=== PATIENT | female | born 1970 | race American Indian/Alaskan Native ===

== ENCOUNTER 2020-08-25 22:31 | Emergency (ER) | payer MEDICARE, MEDICAID ==
[2020-08-25 22:52] VITALS: BP 146/74
[2020-08-25] MEDS ORDERED: oxyCODONE /ACETAMINOPHEN 5-325MG TAB PO ONE (23:05)
[2020-08-25] MEDS ORDERED: ONDANSETRON 4 MG ODT TAB PO ONE (23:05)
[2020-08-25] MEDS ORDERED: predniSONE 20 MG TAB PO ONE (23:05)
[2020-08-25] MEDS ORDERED: IBUPROFEN 600 MG TAB PO ONE (23:05)
[2020-08-25] MEDS ORDERED: AMOXICILLIN/K CLAV 875/125MG TAB PO ONE (23:05)
--- NOTE | 2020-08-25 23:10 | Emergency Department Report ---
ED General Adult HPI - General Chief complaint: Allergic Reaction Stated complaint: FACIAL SWELLING Source: patient Mode of arrival: Ambulatory Limitations: No Limitations - History of Present Illness Initial comments: Patient is a 50-year-old -[place] female with a history of asthma and COPD as well as fio-ozomboq-upxydjway diabetes who presents to the ED with complaint of acute onset persistent painful swollen left maxillary and mandibular gingiva and premolar molar toothache for the last 2 days, worse in the last 12 hours. Patient states that she has not been able to eat anything because of worsening pain and now feels that the pain radiates to her left zygomatic area with pressure. Patient states that she tried to take obcf-xpr-[id number] pain medications with no relief. Patient denies headache, dizziness, syncope, chest pain, shortness of breath, sore throat, nausea and vomiting, fever and chills or change in vision or neck pain. MD Complaint: left upper and lower jaw pain and swelling -: Sudden, days(s) (2) Location: mouth Radiation: non-radiation Severity scale (0 -10): 8 Quality: aching, sharp Consistency: constant Improves with: none Worsens with: eating Associated Symptoms: denies other symptoms. denies: confusion, chest pain, cough, diaphoresis, fever/chills, headaches, loss of appetite, malaise, nausea/vomiting, rash, seizure, shortness of breath, syncope, weakness Treatments Prior to Arrival: none - Related Data Previous Rx's Medication Instructions Recorded Last Taken Type Acetaminophen/Codeine [Tylenol 1 tab PO Q6H PRN #12 tab 08/25/20 Unknown Rx /Codeine # 3 tab] Clindamycin [Clindamycin CAP] 300 mg PO Q8HR #60 capsule 08/25/20 Unknown Rx Ibuprofen [Motrin] 800 mg PO Q8HR PRN #30 tablet 08/25/20 Unknown Rx Allergies Allergy/AdvReac Type Severity Reaction Status Date / Time ciprofloxacin [From Cipro] Allergy Unknown Verified 08/25/20 22:47 nitrofurantoin Allergy Unknown Verified 08/25/20 22:47 [From Macrobid] Sulfa (Sulfonamide Allergy Unknown Verified 08/25/20 22:47 Antibiotics) ED Review of Systems ROS: Stated complaint: FACIAL SWELLING Other details as noted in HPI Constitutional: denies: chills, fever Eyes: denies: eye pain, eye discharge, vision change ENT: dental pain (Left maxillary and mandibular gingival swelling and pain; premolar molar toothache). denies: ear pain, throat pain Respiratory: denies: cough, shortness of breath, wheezing Cardiovascular: denies: chest pain, palpitations Endocrine: no symptoms reported Gastrointestinal: denies: abdominal pain, nausea, diarrhea Genitourinary: denies: urgency, dysuria, discharge Musculoskeletal: denies: back pain, joint swelling, arthralgia Skin: denies: rash, lesions Neurological: denies: headache, weakness, paresthesias Psychiatric: denies: anxiety, depression Hematological/Lymphatic: denies: easy bleeding, easy bruising ED Past Medical Hx - Past Medical History Previous Medical History?: Yes Hx Diabetes: Yes Hx Asthma: Yes Hx COPD: Yes - Surgical History Past Surgical History?: No - Social History Smoking Status: Never Smoker Substance Use Type: None - Medications Home Medications: Home Medications Medication Instructions Recorded Confirmed Last Taken Type Acetaminophen/Codeine [Tylenol 1 tab PO Q6H PRN #12 tab 08/25/20 Unknown Rx /Codeine # 3 tab] Clindamycin [Clindamycin CAP] 300 mg PO Q8HR #60 capsule 08/25/20 Unknown Rx Ibuprofen [Motrin] 800 mg PO Q8HR PRN #30 tablet 08/25/20 Unknown Rx ED Physical Exam - General Limitations: No Limitations General appearance: alert, in no apparent distress - Head Head exam: Present: atraumatic, normocephalic, normal inspection - Eye Eye exam: Present: normal appearance, PERRL, EOMI Pupils: Present: normal accommodation - ENT ENT exam: Present: mucous membranes moist, TM's normal bilaterally, normal external ear exam, other (Swollen, severely tender left maxillary and mandibular gingiva as well as severely tender premolar molar teeth tenderness) - Neck Neck exam: Present: normal inspection, full ROM, lymphadenopathy. Absent: tenderness - Respiratory Respiratory exam: Present: normal lung sounds bilaterally. Absent: respiratory distress, wheezes, chest wall tenderness, accessory muscle use, prolonged expi ratory - Cardiovascular Cardiovascular Exam: Present: regular rate, normal rhythm, normal heart sounds. Absent: systolic murmur, diastolic murmur, rubs, gallop - GI/Abdominal GI/Abdominal exam: Present: soft, normal bowel sounds. Absent: tenderness, guarding, rebound, hyperactive bowel sounds, hypoactive bowel sounds, organomegaly - Extremities Exam Extremities exam: Present: normal inspection, full ROM, normal capillary refill - Back Exam Back exam: Present: normal inspection, full ROM. Absent: tenderness, CVA tenderness (R), CVA tenderness (L), muscle spasm, paraspinal tenderness - Neurological Exam Neurological exam: Present: alert, oriented X3, CN II-XII intact, normal gait, reflexes normal - Psychiatric Psychiatric exam: Present: normal affect, normal mood, anxious - Skin Skin exam: Present: warm, dry, intact, normal color. Absent: rash ED Course Vital Signs 08/25/20 22:46 Temperature 98.8 F Pulse Rate 62 Respiratory 17 Rate Blood Pressure 146/74 O2 Sat by Pulse 99 Oximetry ED Medical Decision Making - Medical Decision Making This is a 50-year-old -[place] female with a history of asthma and COPD as well as xhq-rmifhzz-nbqqlkwve diabetes who presents to the ED with complaint of acute onset persistent painful swollen left maxillary and mandibular gingiva and premolar molar toothache for the last 2 days, worse in the last 12 hours. Patient states that she has not been able to eat anything because of worsening pain and now feels that the pain radiates to her left zygomatic area with pressure. Patient states that she tried to take flfy-qzx-ixwiztq pain medications with no relief. In the ED, patient is alert and oriented x3 and is not in any distress. Patient however appears to be in significant pain. Patient was treated for pain in the ED and on reevaluation, patient's pain is well controlled medication. Patient was therefore discharged home on pain medications and antibiotics and was advised to follow-up with her dentist or primary care physician in 7 to 10 days for reevaluation or return to the ED immediately if symptoms get worse. - Differential Diagnosis Dental abscess; gingivitis; dental caries Critical care attestation.: If time is entered above; I have spent that time in minutes in the direct care of this critically ill patient, excluding procedure time. ED Disposition Clinical Impression: Dental abscess, Acute gingivitis, Dental caries Disposition: TO HOME OR SELFCARE Is pt being admited?: No Does the pt Need Aspirin: No Condition: Stable Instructions: Dental Abscess, Ueay-bz-Ymtv, Trench Mouth Additional Instructions: Take medication with food, drink plenty of fluids and follow-up with your dentist or primary care physician in 7 to 10 days for reevaluation. Return to the ED immediately if symptoms get worse. Prescriptions: Clindamycin [Clindamycin CAP] 300 mg PO Q8HR #60 capsule Ibuprofen [Motrin] 800 mg PO Q8HR PRN #30 tablet PRN Reason: Pain , Severe (7-10) Acetaminophen/Codeine [Tylenol /Codeine # 3 tab] 1 tab PO Q6H PRN #12 tab PRN Reason: Pain , Severe (7-10) Referrals: DANIELA SKELTON MD [Primary Care Provider] - 3-5 Days [facility] [Outside] - 3-5 Days Time of Disposition: 23:08 Print Language: ICELANDIC
== END 2020-08-25 23:50 | disposition home or self-care (01) ==
LOC: ED 22:31
DX: K04.7 Periapical abscess without sinus (principal); K02.9 Dental caries, unspecified; K05.00 Acute gingivitis, plaque induced; E11.9 Type 2 diabetes mellitus without complications; J44.9 Chronic obstructive pulmonary disease, unspecified; Z79.1 Long term (current) use of non-steroidal anti-inflammatories (NSAID); Z79.2 Long term (current) use of antibiotics; Z79.899 Other long term (current) drug therapy; Z88.2 Allergy status to sulfonamides; Z88.8 Allergy status to other drugs, medicaments and biological substances
CPT/HCPCS: 99282; J7512; Q0162

== ENCOUNTER 2020-11-18 07:37 | Emergency (ER) | payer MEDICARE ==
[2020-11-18 07:45] VITALS: BP 115/77
--- NOTE | 2020-11-18 09:10 | Emergency Department Report ---
ED ENT HPI - General Chief complaint: Adult Asthma Stated complaint: SOB/HEADACHE/BODYACHE Time Seen by Provider: 11/18/20 08:58 Source: patient, EMS Mode of arrival: Ambulatory Limitations: No Limitations - History of Present Illness Initial comments: 50-year-old -[place] female with a history of seasonal allergies COPD asthma presents to the emergency room reporting she is having trouble breathing out of her nose. Patient states this started on Thursday. Patient reports that she has been having nasal congestion she is currently on Astelin nasal spray Xyzal. She is has her Covid vaccine. She states that this started on Thursday. Patient reports she has a headache right over her frontal and nasal bridge. She states has been taken Tylenol last dose was yesterday. She denies any fever or chills. - Related Data Previous Rx's Medication Instructions Recorded Last Taken Type Acetaminophen/Codeine [Tylenol 1 tab PO Q6H PRN #12 tab 08/25/20 Unknown Rx /Codeine # 3 tab] Clindamycin [Clindamycin CAP] 300 mg PO Q8HR #60 capsule 08/25/20 Unknown Rx Ibuprofen [Motrin] 800 mg PO Q8HR PRN #30 tablet 08/25/20 Unknown Rx Pseudoephedrine ER [Sudafed 12 Hr] 120 mg PO BID #20 tablet.er 11/18/20 Unknown Rx Allergies Allergy/AdvReac Type Severity Reaction Status Date / Time ciprofloxacin [From Cipro] Allergy Unknown Verified 08/25/20 22:47 nitrofurantoin Allergy Unknown Verified 08/25/20 22:47 [From Macrobid] Sulfa (Sulfonamide Allergy Unknown Verified 08/25/20 22:47 Antibiotics) ED Dental HPI - General Chief complaint: Adult Asthma Stated complaint: SOB/HEADACHE/BODYACHE Time Seen by Provider: 11/18/20 08:58 Source: patient, EMS Mode of arrival: Ambulatory Limitations: No Limitations - Related Data Previous Rx's Medication Instructions Recorded Last Taken Type Acetaminophen/Codeine [Tylenol 1 tab PO Q6H PRN #12 tab 08/25/20 Unknown Rx /Codeine # 3 tab] Clindamycin [Clindamycin CAP] 300 mg PO Q8HR #60 capsule 08/25/20 Unknown Rx Ibuprofen [Motrin] 800 mg PO Q8HR PRN #30 tablet 08/25/20 Unknown Rx Pseudoephedrine ER [Sudafed 12 Hr] 120 mg PO BID #20 tablet.er 11/18/20 Unknown Rx Allergies Allergy/AdvReac Type Severity Reaction Status Date / Time ciprofloxacin [From Cipro] Allergy Unknown Verified 08/25/20 22:47 nitrofurantoin Allergy Unknown Verified 08/25/20 22:47 [From Macrobid] Sulfa (Sulfonamide Allergy Unknown Verified 08/25/20 22:47 Antibiotics) ED Review of Systems ROS: Stated complaint: SOB/HEADACHE/BODYACHE Other details as noted in HPI Comment: All other systems reviewed and negative ED Past Medical Hx - Past Medical History Previous Medical History?: Yes Hx Diabetes: Yes Hx Asthma: Yes Hx COPD: Yes - Surgical History Past Surgical History?: Yes Hx Breast Surgery: Yes (Right breast mastectomy) Additional Surgical History: Hysterectomy, right hand surgery, Tonsilectomy, Nasal surgery, Nikhil carpel tunnel surgery - Social History Smoking Status: Never Smoker Substance Use Type: Prescribed - Medications Home Medications: Home Medications Medication Instructions Recorded Confirmed Last Taken Type Acetaminophen/Codeine [Tylenol 1 tab PO Q6H PRN #12 tab 08/25/20 Unknown Rx /Codeine # 3 tab] Clindamycin [Clindamycin CAP] 300 mg PO Q8HR #60 capsule 08/25/20 Unknown Rx Ibuprofen [Motrin] 800 mg PO Q8HR PRN #30 tablet 08/25/20 Unknown Rx Pseudoephedrine ER [Sudafed 12 Hr] 120 mg PO BID #20 tablet.er 11/18/20 Unknown Rx ED Physical Exam - General Limitations: No Limitations General appearance: alert, in no apparent distress - Head Head exam: Present: atraumatic, normocephalic - Eye Eye exam: Present: normal appearance - ENT ENT exam: Present: normal external ear exam, other (Maxillary frontal sinus tenderness) - Neck Neck exam: Present: normal inspection, full ROM - Respiratory Respiratory exam: Present: normal lung sounds bilaterally. Absent: respiratory distress, accessory muscle use - Cardiovascular Cardiovascular Exam: Present: regular rate, normal rhythm. Absent: systolic murmur, diastolic murmur, rubs, gallop - Back Exam Back exam: Present: normal inspection - Neurological Exam Neurological exam: Present: alert, oriented X3, normal gait - Psychiatric Psychiatric exam: Present: normal affect, normal mood - Skin Skin exam: Present: warm, dry, intact, normal color. Absent: rash ED Course Vital Signs 11/18/20 07:39 Temperature 99.9 F H Pulse Rate 98 H Respiratory 21 Rate Blood Pressure 115/77 O2 Sat by Pulse 98 Oximetry ED Medical Decision Making - Medical Decision Making 50-year-old -[place] female with a history of seasonal allergies COPD asthma presents to the emergency room reporting she is having trouble breathing out of her nose. Patient states this started on Thursday. Patient reports that she has been having nasal congestion she is currently on Astelin nasal spray Xyzal. She is has her Covid vaccine. She states that this started on Thursday. Patient reports she has a headache right over her frontal and nasal bridge. She states has been taken Tylenol last dose was yesterday. She denies any fever or chills. Recommend patient to take Sudafed along with her medications for seasonal a llergies. I discussed with patient increase her water intake. Follow-up with her primary care provider. Tylenol ibuprofen as needed for pain Critical care attestation.: If time is entered above; I have spent that time in minutes in the direct care of this critically ill patient, excluding procedure time. ED Disposition Clinical Impression: Nasal sinus congestion, Allergic rhinitis Disposition: DC-01 TO HOME OR SELFCARE Is pt being admited?: No Does the pt Need Aspirin: No Condition: Stable Instructions: Allergic Rhinitis, Adult, Aicf-ch-[id number], Sinus Headache, [id number] Additional Instructions: Please take Sudafed as prescribed. Increase your water intake. Tylenol or ibuprofen for headache. Continue with all chronic medications. Follow-up with your primary care provider if symptoms persist or gets worse. Prescriptions: Pseudoephedrine ER [Sudafed 12 Hr] 120 mg PO BID #20 tablet.er Referrals: Your, primary care provider [Other] - 3-5 Days Time of Disposition: 09:00
== END 2020-11-18 09:17 | disposition home or self-care (01) ==
LOC: ED 07:37
DX: R09.81 Nasal congestion (principal); J45.909 Unspecified asthma, uncomplicated; J44.9 Chronic obstructive pulmonary disease, unspecified; E11.8 Type 2 diabetes mellitus with unspecified complications; Z98.890 Other specified postprocedural states; Z88.1 Allergy status to other antibiotic agents; Z88.2 Allergy status to sulfonamides
CPT/HCPCS: 99283